=== PATIENT | female | born 1990 | race Caucasian/White ===

== ENCOUNTER 2019-05-08 18:00 | Inpatient (IN) | payer BC, SELFPAY ==
[2016-09-29 01:10] VITALS: BMI 29.7
[2019-05-08] MEDS: Lactated Ringers 1,000 ML 50 ML IV (18:35)
[2019-05-08 18:45] VITALS: BMI 32.1
[2019-05-08 19:06] LABS: Absolute Lymphocyte Count 1.52 X10^3/uL (0.83-4.51); Absolute Neutrophil Count 5.6 X10^3/uL (2.0-7.7); Basophil# 0.02 X10^3/uL; Basophil% 0.3 % (0-1); Eosinophil# 0.13 X10^3/uL; Eosinophils% 1.7 % (0-5); Hematocrit 36.5 % (37-47); Hemoglobin 12.7 g/dL (12.0-15.0); Lymphocyte # 1.52 X10^3/ul (4.0); Lymphocyte % 19.3 % (19-41); Mean Corp Hgb Conc 34.8 g/dL (32-36); Mean Corpuscular Hgb 32.3 pg (27.0-32.0); Mean Corpuscular Volume 92.9 fL (81-99); Monocyte# 0.56 X10^3/uL; Monocyte% 7.1 % (0-10); NRBC Flagged by Analyzer 0 % (0-5); Neutrophil % 71.2 % (47-70); POSITIVE MORPHOLOGY YES; Platelet Count 187 K/mm3 (150-450); RBC Distribution Width CV 13.5 % (11.6-14.6); RBC Distribution Width SD 45.7 fl (35.1-43.9); Red Blood Count 3.93 M/mm3 (4.2-5.4); White Blood Count 7.9 K/mm3 (4.4-11.0)
[2019-05-08 19:10] LABS: Differential Indicated SCAN CRITERIA MET
[2019-05-08 19:38] LABS: Anisocytosis RARE; Macrocytosis RARE; Platelet Estimate ADEQUATE (ADEQ)
[2019-05-08 19:57] LABS: Hematocrit 35.9 % (37-47); Hemoglobin 12.4 g/dL (12.0-15.0); Mean Corp Hgb Conc 34.5 g/dL (32-36); Mean Corpuscular Hgb 32.8 pg (27.0-32.0); Mean Platelet Vol. 11.6 fl (6.2-12.0); Platelet Count 184 K/mm3 (150-450); RBC Distribution Width CV 13.4 % (11.6-14.6); RBC Distribution Width SD 46.6 fl (35.1-43.9); Red Blood Count 3.78 M/mm3 (4.2-5.4); White Blood Count 8.5 K/mm3 (4.4-11.0)
[2019-05-08] MEDS: Oxytocin 30 units/NS 500 ml 30 UNITS/500 ML IV.SOLN 334 UNITS IV (20:10)
[2019-05-08 20:13] LABS: AST(SGOT) 11 U/L (15-37); Alanine Aminotransfer ALT/SGPT 11 U/L (13-56); Creatinine, Serum 0.63 mg/dL (0.55-1.02); EST Glomerular Filtration Rate 119 mL/min (>60); Est Glom Filt Rate - Afr Amer 144 mL/min (>60); Estimated Creatinine Clearance 104.21 ml/min; Uric Acid 3.9 mg/dL (2.6-6.0)
--- NOTE | 2019-05-08 20:30 | PCM.HP.OB ---
History Date of Admission: 05/08/19 Final JULIETA: 05/08/19 Final JULIETA Source: LMP Gestational age: 40 Weeks and 0 Days History of this : This is a 29 year-old, G 4P1 at 40 weeks gestation history of GDM A1 here for induction of labor. Patient was 4 to 5 cm in the office admitted for Pitocin induction. On admission patient was not feeling contractions elevated blood pressures at time of admission but asymptomatic. Shortly after admission patient went to the bathroom had spontaneous rupture membranes and was found to be 9 cm. Allergies No Known Allergies Allergy (Verified 05/08/19 18:47) Home Medications: Home Medications Pnv No.95/Ferrous Fum/Folic AC [ Vitamins Tablet] 1 tab PO DAILY 05/08/19 Smoking Status: Never smoker Alcohol: None Number of Fetus(es): 1 Heart Tracin mod cary, + accels, variables History Past Pregnancies: Past Pregnancies Delivery Date Name GA/Weeks Outcome Route Weight Infant Gender Labor Length Anesthesia Delivery Location Provider FOB Labs: HIV neg, Rub imm, HEPB neg, GBS neg, A + Expected Infant Delivery Method: Spontaneous Vaginal Review of Systems Eyes: Denies: Blurred vision Cardiovascular: Denies: Chest Pain Gastrointestinal: Denies: Abdominal Pain Physical Exam General: Alert, Oriented x3 Neurological: Cranial nerves II-XII grossly intact 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 And for induction of labor but proceeded with spontaneous labor admit to L&D monitor FHR/TOCO anticpate Monitor VS- consider HTN protocol
--- NOTE | 2019-05-08 20:37 | PCM.OPRPT ---
Vaginal Delivery Maternal Presentation: Medically Indicated Induction - pt arrived and proceeded into spontaneous labor - with preciptious delivery Amniotic Membrane Rupture Type: Spontaneous Amniotic Fluid Description: Clear Final JULIETA: 05/08/19 Final JULIETA Source: US <20 weeks Gestational age: 40 Weeks and 0 Days Date of Procedure: 05/08/19 Pre-Operative Diagnosis: term gestation, GDMA1 Post-Operative Diagnosis: same, live male infant Surgery/ Procedure Performed: Spontaneous Vaginal Delivery Type of Anesthesia: - - Nitrous Description of Procedure: Arrived at the hospital patient was found to be complete and a +1 station. Patient had nitrous oxide for pain relief. Patient had good maternal effort with pushing delivered a live male infant born without complication. There were umbilical cord was wrapped around both arms and the back. was vigorous at . Delayed cord clamping was performed. Presentation: Vertex Placental Delivery Description: Spontaneous Placenta Disposition: [facility] Cord Vessel Description: 3 Vessels Nuchal Cord Compression: With compression Cord Entanglement: - - Cord around both arms and back Estimated Blood Loss: 200 A gender: Male (1 minute): 8 (5 minute): 9 Episiotomy Description: None Laceration: Vaginal Extension/lac - repaired with 3-0 rapide, 1st degree Medications given after delivery: IV Pitocin Complications: None
[2019-05-08] MEDS: Oxytocin 30 units/NS 500 ml 30 UNITS/500 ML IV.SOLN 167 UNITS IV (20:40)
[2019-05-08 20:56] LABS: International Normalized Ratio 0.9; Partial Thromboplast Time 28.4 Seconds (24.1-36.2); Prothrombin Time (Protime)PT. 12.3 SECONDS (11.7-14.9)
[2019-05-08 21:40] LABS: Bedside Glucose 65 mg/dL (70-110)
[2019-05-08 21:40] LABS: Bedside Glucose 111 mg/dL (70-110)
[2019-05-08] MEDS: Methylergonovine 0.2 MG/ML Ampul IM (21:47)
[2019-05-08 22:45] VITALS: BP 153/94; PULSE 68; RESP 18; TEMP 36.6; O2SAT 99
[2019-05-08 23:45] VITALS: BP 180/96; PULSE 77; RESP 18; TEMP 36; O2SAT 96
[2019-05-08 23:55] VITALS: BP 163/88; PULSE 89; RESP 18
[2019-05-09] VITALS (23 sets, daily range): BP systolic 114–179; BP diastolic 65–101; PULSE 61–91; RESP 16–19; TEMP 36.2–36.7; O2SAT 95–100
[2019-05-09] MEDS: 0.9% Saline Lock 10 ML Syringe IV ×2 (00:08→07:27)
[2019-05-09] MEDS: Ibuprofen 600 MG Tablet PO ×4 (00:21→19:13)
--- NOTE | 2019-05-09 00:43 | NURSING ---
Dr Palm was notified at 2232 on pt blood sugar 111. to repeat in AM. also informed of blood pressures. to continue monitoring blood pressures if 160/110 per our protocol wants to be notified. pt currently assymptomatic. Reports that this was the way she was with her last delivery however blood pressure not as high. Doctor aware of methergine x1 given at 2232. reported off at 2330 to keisha rojas.
[2019-05-09] MEDS: Labetalol 100 MG Tablet PO (00:48)
[2019-05-09 01:57] LABS: Creatinine, Urine (random) < 13.00 mg/dL (NO RANGE EST.); Protein, Urine (Random) < 6.0 mg/dL (<11.9)
--- NOTE | 2019-05-09 02:07 | NURSING ---
pt floyd camilo'd @ 0125 for clean catch urine for protein/creat ratio lab
[2019-05-09 07:41] LABS: Bedside Glucose 72 mg/dL (70-110)
--- NOTE | 2019-05-09 08:07 | PN.OBGYN_ITS ---
Subjective: Patient seen at bedside, doing well. Patient reports good pain control, mild lochia. Patient reports no breast-feeding issues. Patient denies headaches, visual changes, right upper quadrant or epigastric pain. - Physical Exam General: Alert, Oriented x3 Abdomen: Soft, Non Tender, Non-Distended, - - Fundus firm. No right upper quadrant pain Extremities: No Calf Tenderness Vital Signs Temp Pulse Resp BP Pulse Ox 97.3 F L 61 16 179/87 H 96 05/09/19 04:19 05/09/19 07:20 05/09/19 07:20 05/09/19 07:20 05/09/19 07:20 Oxygen Delivery Method Room Air Weight: 79.6 kg Body Mass Index (BMI) 32.1 Intake and Output for Last 24 Hours 05/07/19 05/08/19 05/09/19 23:59 23:59 23:59 Intake Total 1825 / 1825 Output Total 700 / 700 1450 / 1450 Balance 1125 / 1125 -1450 / -1450 Laboratory Tests Past 24 Hrs 05/08/19 05/08/19 05/08/19 18:35 18:35 19:45 WBC 7.9 8.5 RBC 3.93 L 3.78 L Hgb 12.7 12.4 Hct 36.5 L 35.9 L MCV 92.9 95.0 MCH 32.3 H 32.8 H MCHC 34.8 34.5 RDW Std Deviation 45.7 H 46.6 H RDW Coeff of Kelly 13.5 13.4 Plt Count 187 184 MPV 12.0 11.6 Immature Gran % (Auto) 0.400 Neut % (Auto) 71.2 H Lymph % (Auto) 19.3 [place] % (Auto) 7.1 Eos % (Auto) 1.7 Baso % (Auto) 0.3 Absolute Neuts (auto) 5.6 Absolute Lymphs (auto) 1.52 Nucleated RBC % 0 Platelet Estimate ADEQUATE Anisocytosis RARE Macrocytosis RARE PT INR APTT Creatinine Estim Creat Clear Calc Est GFR (MDRD) Af Amer Est GFR (MDRD) Non-Af Uric Acid AST ALT U Random Total Protein Urine Creatinine Protein/Creatinin Ratio Blood Type A POSITIVE Antibody Screen NEGATIVE 05/08/19 05/08/19 05/09/19 19:45 19:45 01:25 WBC RBC Hgb Hct MCV MCH MCHC RDW Std Deviation RDW Coeff of Kelly Plt Count MPV Immature Gran % (Auto) Neut % (Auto) Lymph % (Auto) [place] % (Auto) Eos % (Auto) Baso % (Auto) Absolute Neuts (auto) Absolute Lymphs (auto) Nucleated RBC % Platelet Estimate Anisocytosis Macrocytosis PT 12.3 INR 0.9 APTT 28.4 Creatinine 0.63 Estim Creat Clear Calc 104.21 Est GFR (MDRD) Af Amer 144 Est GFR (MDRD) Non-Af 119 Uric Acid 3.9 AST 11 L ALT 11 L U Random Total Protein < 6.0 Urine Creatinine < 13.00 Protein/Creatinin Ratio TNP Blood Type Antibody Screen POC Glucose 05/09/19 05/08/19 05/08/19 07:34 21:21 19:29 POC Glucose 72 111 H 65 L Medical Necessity - Tobacco Use Smoking Status: Never smoker Assessment/Plan Is day #1, gestational hypertension Reviewing her blood pressures there were a few severe blood pressures. However the patient received Methergine after delivery due to increased bleeding. At this point I feel that the patient is stable and overall blood pressures are in the nonsevere range. We will monitor them and if they become persistently severe we will start magnesium. This plan was reviewed with the patient and nursing staff. Increase labetalol to 200 mg twice daily Preeclamptic labs were reviewed and were negative. Monitor her vital signs Patient understands she will need close follow-up in the office. Possible DC home after 48 hours if vital signs are stable.
[2019-05-09] MEDS: Labetalol 200 MG Tablet PO ×2 (10:15→21:53)
--- NOTE | 2019-05-09 16:15 | CASEMGMT ---
Social Work Referral Date: 05/09/19 Date of Assessment: 05/09/19 Reason for Consult: Mother of baby (MOB) with history of depression/anxiety. Informant: Nursing staff, chart. Personal Status Mentation: MOB A&Ox3 Present during assessment: MOB, Father of baby (FOB) and infant. Hx : 4 Hx Para: 1 Infant Gender: Male Infant Name: Merlin Sanchez (1min): 8 (5min): 9 Care: Adequate Alleged father: Queenie Sanchez Alleged father involved: Yes Length of Relationship with alleged father of baby: MOB and FOB have been for 5 years. FOB Employment: FOB has full-time employment. Number of Children in the home: This is second child for MOB and FOB. This is now younger brother to Prasanth Sanchez who is 2 years old. Custody Comments: MOB and FOB have custody of this infant as well as Everlee. Living Arrangements: MOB, FOB, Everlee and now this infant live in own apartment. 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 Supports: MOB reporting to have support from both MOB's family as well as FOB's family. Transportation: MOB denies any transportation concerns. Substance Abuse Hx and Current Pattern of Use MOB denies any substance abuse. Mental Health Hx and Current Status MOB denies any history of depression but is reporting to have a history of anxiety. MOB is stating to have a history of some depression with first . MOB denies any history of medication to treat anxiety/PPD. MOB stating to be able to manage own mental health by talking it out with family members and friends. MOB denies any history of suicidal thoughts. MOB reporting no history of counseling. Items/Skills List for Infants Care Supplies: MOB stating to have all needed supplies (crib, clothing, bassinet, car seat, diapers, wipes etc.). Bonding With Infant: MOB reporting to have a connection with . Observed Maternal/Paternal Child interaction: Infant resting in bassinet during assessment, but MOB did gaze towards often during assessment. Emotional Assessment: MOB presenting with a pleasant affect. MOB stating to be tired due to not sleeping since 6am on 05/08/19. MOB responding appropriately to questions and open to this social workers assessment. Control: MOB stating to not be sure. Resources JFS: N/A WIC: N/A People to People: N/A Community Action: N/A Help Me Grow: MOB not interested at this time, information provided. Children Protective Services Hx: N/A Intervention: Social Work assessment. Resources for depression, safe sleeping, shaken baby syndrome, Help Me Grow, and [facility] resources provided to patient. Assessment: This social professionals met with MOB and FOB in room. MOB resting in bed and infant lying in bassinet, resting. This social professionals introduced self as well as social work role. MOB agreeable to assessment. MOB reporting to be able to manage anxiety with self coping. MOB stating to be able to vent to family and is denying any need to have counseling or plan to begin any medication to assist with anxiety management. MOB stating to be doing well with mental health management. This social professionals educating MOB on the importance of maintaining mental health to be able to meet own needs as well as needs, MOB voicing understanding and plans to speak with PCP if MOB has any mental health concerns. This social professionals providing MOB with resource of signs and symptoms of PPD. MOB aware of risk of PPD and expressing a good understanding of signs and symptoms of PPD. All questions answered. Nursing staff updated on social work assessment, no further referrals at this time. Plan: Infant plans to discharge to home with LIBBY, SHERRY and Prasanth Solis PLANTING MACHINE CREWMAN, PARTS EXPEDITER
[2019-05-10 02:05] VITALS: BP 128/80; PULSE 68; RESP 16; TEMP 36.3
[2019-05-10 08:41] VITALS: BP 140/74; PULSE 84; RESP 16; TEMP 36.8; O2SAT 96
--- NOTE | 2019-05-10 08:43 | DCINST_ITS ---
Discharge Diet: No Restrictions Discharge Activity: May Drive, May Shower May resume sexual activity in: 6 weeks Weight Bearing Status: Weight bearing as tolerated Additional Instructions: If you experience any of the following, contact your healthcare provider. * Bleeding that soaks a pad every hour for 2 hours * Fever 100.4 or higher * Unrelieved incision or abdominal pain * Swelling, redness, discharge or bleeding from your incision or episiotomy site * Your incision begins to separate * Problems urinating (including inability to urinate or burning while urinating). * Visual changes * Severe headache * Flu-like symptoms * Pain or redness in one of both of your breasts * Pain, warmth, tenderness or swelling in your legs, especially the calf area * Frequent nausea and vomiting * Symptoms of depression or anxiety If you experience any of the following, call 911 or go to the nearest Emergency Room. * Chest pain * Problems breathing * Seizure activity * Partial or complete paralysis of a body part, slurred speech, weakness or drooping of the face, or a sudden inability to walk or hold your balance Allergies/Adverse Reactions: Allergies No Known Allergies Allergy (Verified 05/08/19 18:47) Medications to take at Discharge Pnv No.95/Ferrous Fum/Folic AC [ Vitamins Tablet] 1 tab PO DAILY 05/08/19 Labetalol [Trandate (Beta Evette)] 200 mg PO BID #60 tab 05/10/19 The following prescriptions were given: Labetalol [Trandate (Beta Evette)] 200 mg PO BID #60 tab Prescription Printed Primary Care Physician: Iliana Powell DO [Primary Care Provider] - Test Results: Test results from this visit will be discussed in further detail at your follow- up appointment, if applicable.
--- NOTE | 2019-05-10 08:43 | PCM.DCVAG ---
Discharge Diet: No Restrictions Discharge Activity: May Drive, May Shower May resume sexual activity in: 6 weeks Weight Bearing Status: Weight bearing as tolerated Additional Instructions: If you experience any of the following, contact your healthcare provider. Bleeding that soaks a pad every hour for 2 hours Fever 100.4 or higher Unrelieved incision or abdominal pain Swelling, redness, discharge or bleeding from your incision or episiotomy site Your incision begins to separate Problems urinating (including inability to urinate or burning while urinating). Visual changes Severe headache Flu-like symptoms Pain or redness in one of both of your breasts Pain, warmth, tenderness or swelling in your legs, especially the calf area Frequent nausea and vomiting Symptoms of depression or anxiety If you experience any of the following, call 911 or go to the nearest Emergency Room. Chest pain Problems breathing Seizure activity Partial or complete paralysis of a body part, slurred speech, weakness or drooping of the face, or a sudden inability to walk or hold your balance Allergies/Adverse Reactions: Allergies No Known Allergies Allergy (Verified 05/08/19 18:47) Medications to take at Discharge Pnv No.95/Ferrous Fum/Folic AC [ Vitamins Tablet] 1 tab PO DAILY 05/08/19 Labetalol [Trandate (Beta Evette)] 200 mg PO BID #60 tab 05/10/19 The following prescriptions were given: Labetalol [Trandate (Beta Evette)] 200 mg PO BID #60 tab Prescription Printed Primary Care Physician: Iliana Powell DO [Primary Care Provider] - Test Results: Test results from this visit will be discussed in further detail at your follow-up appointment, if applicable.
--- NOTE | 2019-05-10 08:45 | PCM.PN.OB ---
Subjective: Denies headache or blurry vision. She feels well. - Physical Exam General: Alert, Oriented x3 Abdomen: Soft, Non Tender, Non-Distended - ff mid & below umb Extremities: No Calf Tenderness Vital Signs Temp Pulse Resp BP Pulse Ox 98.2 F 84 16 140/74 H 96 05/10/19 08:41 05/10/19 08:41 05/10/19 08:41 05/10/19 08:41 05/10/19 08:41 Oxygen Delivery Method Room Air Weight: 175 lb 7.807 oz Body Mass Index (BMI) 32.1 Intake and Output for Last 24 Hours 05/08/19 05/09/19 05/10/19 23:59 23:59 23:59 Intake Total 1825 / 1825 Output Total 700 / 700 1450 / 1450 Balance 1125 / 1125 -1450 / -1450 Medical Necessity - Tobacco Use Smoking Status: Never smoker Assessment/Plan PPD#2 Gestational hypertension - continue labetalol, Bp's normal. D/c home later today
[2019-05-10] MEDS: Labetalol 200 MG Tablet PO (10:13)
[2019-05-10] MEDS: Senna/Docusate Sodium 1 Tablet PO (10:26)
--- NOTE | 2019-05-10 13:33 | NURSING ---
1200 Patient states she is comfortable going home and taking care of herself and her baby. Discharged to car via wheelchair with baby in lap in carseat. Tolerated well.
== END 2019-05-10 13:20 | disposition home or self-care (01) | DRG 806 ==
PROVIDERS: Admitting Provider Obstetrics & Gynecology; Family Provider Internal Medicine; PCP Internal Medicine; Visit Provider Obstetrics & Gynecology
DX: O24.420 Gestational diabetes mellitus in childbirth, diet controlled (principal); O71.4 Obstetric high vaginal laceration alone; Z37.0 Single live birth; O13.4 Gestational [pregnancy-induced] hypertension without significant proteinuria, complicating childbirth; O48.0 Post-term pregnancy; Z3A.40 40 weeks gestation of pregnancy; O69.1XX0 Labor and delivery complicated by cord around neck, with compression, not applicable or unspecified
CPT/HCPCS: 59025; 59050; 82565; 82570; 82962; 84156; 84450; 84460; 84550; 85025; 85027; 85610; 85730; 86850; 86900; 99218; J7120; A4216; G0378

== ENCOUNTER 2019-05-13 10:40 | Outpatient (CLI) | payer BC, SELFPAY ==
[2019-05-13 11:37] LABS: Hematocrit 35.1 % (37-47); Hemoglobin 11.9 g/dL (12.0-15.0); Mean Corp Hgb Conc 33.9 g/dL (32-36); Mean Corpuscular Hgb 32.3 pg (27.0-32.0); Mean Corpuscular Volume 95.4 fL (81-99); Mean Platelet Vol. 10.4 fl (6.2-12.0); Platelet Count 219 K/mm3 (150-450); RBC Distribution Width CV 13.9 % (11.6-14.6); RBC Distribution Width SD 48.8 fl (35.1-43.9); Red Blood Count 3.68 M/mm3 (4.2-5.4); White Blood Count 7.1 K/mm3 (4.4-11.0)
[2019-05-13 11:44] LABS: International Normalized Ratio 0.9; Prothrombin Time (Protime)PT. 12.2 SECONDS (11.7-14.9)
[2019-05-13 11:45] LABS: Partial Thromboplast Time 27.7 Seconds (24.1-36.2)
[2019-05-13 11:49] LABS: AST(SGOT) 29 U/L (15-37); Alanine Aminotransfer ALT/SGPT 32 U/L (13-56); Creatinine, Serum 0.62 mg/dL (0.55-1.02); EST Glomerular Filtration Rate 120 mL/min (>60); Est Glom Filt Rate - Afr Amer 145 mL/min (>60); Uric Acid 4.1 mg/dL (2.6-6.0)
[2019-05-13 12:27] VITALS: BMI 29.9
[2019-05-13 12:43] LABS: Protein, Urine (Random) 87.3 mg/dL (<11.9); Protein:Creat Ratio 4157 mg/g CRE (0-200)
--- NOTE | 2019-05-27 17:41 | OB.TRI.NOTE ---
History of Present Illness Date of Service: 05/13/19 Was patient seen by the physician?: No Reason For Visit: R/O PIH Final JULIETA Source: US <20 weeks Allergies No Known Allergies Allergy (Verified 05/08/19 18:47) Laboratory Studies: Laboratory Tests 05/13/19 05/13/19 05/13/19 Range/Units 12:10 11:25 11:25 WBC (4.4-11.0) K/mm3 RBC (4.2-5.4) M/mm3 Hgb (12.0-15.0) g/dL Hct (37-47) % MCV (81-99) fL MCH (27.0-32.0) pg MCHC (32-36) g/dL RDW Std Deviation (35.1-43.9) fl RDW Coeff of Kelly (11.6-14.6) % Plt Count (150-450) K/mm3 MPV (6.2-12.0) fl PT 12.2 (11.7-14.9) SECONDS INR 0.9 APTT 27.7 (24.1-36.2) Seconds Creatinine 0.62 (0.55-1.02) mg/dL Est GFR (MDRD) Af Amer 145 (>60) mL/min Est GFR (MDRD) Non-Af 120 (>60) mL/min Uric Acid 4.1 (2.6-6.0) mg/dL AST 29 (15-37) U/L ALT 32 (13-56) U/L U Random Total Protein 87.3 H (<11.9) mg/dL Urine Creatinine 21.00 (NO RANGE EST.) mg/dL Protein/Creatinin Ratio 4157 H (0-200) mg/g CRE 05/13/19 Range/Units 11:25 WBC 7.1 (4.4-11.0) K/mm3 RBC 3.68 L (4.2-5.4) M/mm3 Hgb 11.9 L (12.0-15.0) g/dL Hct 35.1 L (37-47) % MCV 95.4 (81-99) fL MCH 32.3 H (27.0-32.0) pg MCHC 33.9 (32-36) g/dL RDW Std Deviation 48.8 H (35.1-43.9) fl RDW Coeff of Kelly 13.9 (11.6-14.6) % Plt Count 219 (150-450) K/mm3 MPV 10.4 (6.2-12.0) fl PT (11.7-14.9) SECONDS INR APTT (24.1-36.2) Seconds Creatinine (0.55-1.02) mg/dL Est GFR (MDRD) Af Amer (>60) mL/min Est GFR (MDRD) Non-Af (>60) mL/min Uric Acid (2.6-6.0) mg/dL AST (15-37) U/L ALT (13-56) U/L U Random Total Protein (<11.9) mg/dL Urine Creatinine (NO RANGE EST.) mg/dL Protein/Creatinin Ratio (0-200) mg/g CRE NST - FHR Rate Baby A Baseline: 110 Variability:: Moderate Accelerations:: 15 x 15 Decelerations:: None NST Reactive:: Yes Uterine Activity:: Q2 minutes Impression/Plan NST for elevated blood pressure in
== END 2019-05-13 12:45 | disposition home or self-care (01) ==
LOC: WPOUT 10:45 → WP 10:46
PROVIDERS: Family Provider Internal Medicine; PCP Internal Medicine; Referring Provider Obstetrics & Gynecology; Visit Provider Obstetrics & Gynecology
DX: O16.9 Unspecified maternal hypertension, unspecified trimester (principal); Z3A.00 Weeks of gestation of pregnancy not specified
CPT/HCPCS: 82565; 82570; 84156; 84450; 84460; 84550; 85027; 85610; 85730; 99218; G0378

== ENCOUNTER 2020-12-24 13:45 | Inpatient (IN) | payer BC, SELFPAY ==
[2020-12-24] VITALS (44 sets, daily range): BP systolic 104–167; BP diastolic 62–105; PULSE 68–104; TEMP 36.8–37.8; O2SAT 98–100; BMI 30.7
[2020-12-24] MEDS: Lactated Ringers 1,000 ML 50 ML IV (14:35)
[2020-12-24] MEDS: Oxytocin 30 units/NS 500 ml 30 UNITS/500 ML IV.SOLN IV (14:40)
[2020-12-24 14:47] LABS: Absolute Lymphocyte Count 1.66 X10^3/uL (0.83-4.51); Absolute Neutrophil Count 6.8 X10^3/uL (2.0-7.7); Basophil# 0.03 X10^3/uL; Basophil% 0.3 % (0-1); Hematocrit 36.6 % (37-47); Hemoglobin 12.4 g/dL (12.0-15.0); Lymphocyte # 1.66 X10^3/ul (4.0); Lymphocyte % 18.3 % (19-41); Mean Corp Hgb Conc 33.9 g/dL (32-36); Mean Corpuscular Hgb 31.8 pg (27.0-32.0); Mean Corpuscular Volume 93.8 fL (81-99); Mean Platelet Vol. 11.4 fl (6.2-12.0); Monocyte# 0.49 X10^3/uL; Monocyte% 5.4 % (0-10); NRBC Flagged by Analyzer 0 % (0-5); Neutrophil # 6.82 X10^3/uL (2.7-7.7); Neutrophil % 75.4 % (47-70); Platelet Count 206 K/mm3 (150-450); RBC Distribution Width SD 44.8 fl (35.1-43.9); White Blood Count 9.1 K/mm3 (4.4-11.0)
[2020-12-24 15:25] LABS: Bedside Glucose 74 mg/dL (70-110)
--- NOTE | 2020-12-24 16:44 | PCM.HP.OB ---
- Problem List (1) 39 weeks gestation of Status: Acute (2) Chronic hypertension affecting Status: Acute (3) Gestational diabetes Status: Acute Qualifiers: Gestational diabetes mellitus control: diet-controlled Trimester: third trimester Qualified Code(s): O24.410 - Gestational diabetes mellitus in , diet controlled History Date of Admission: 12/24/20 Final JULIETA: 12/31/20 Final JULIETA Source: US <20 weeks Gestational age: 39 Weeks and 0 Days History of this : This is a 30 year-old, G [5], P [2021], at 39 weeks gestational age that was sent over from the office for induction of labor due to chronic hypertension, GDM diet controlled and history of precipitous delivery. Patient denies feeling any contractions, denies loss of fluid or vaginal bleeding and positive movement. Allergies No Known Allergies Allergy (Verified 05/08/19 18:47) Home Medications: Home Medications Pnv No.95/Ferrous Fum/Folic AC [ Vitamins Tablet] 1 tab PO DAILY 05/08/19 Labetalol [Trandate (Beta Evtete)] 200 mg PO BID 12/24/20 Smoking Status: Never smoker Number of Fetus(es): 1 NST - FHR Rate Baby A Baseline: 135 Variability:: Moderate Accelerations:: 15 x 15 Decelerations:: None NST Reactive:: Yes FHR Category:: Category I Uterine Activity:: TOCO reading every 2-4 minutes. Palpate moderate and relaxed in between History Past Pregnancies: Past Pregnancies Delivery Date Name GA/ Weeks Outcome Route Wt Sex Labor Length Anesthesia Delivery Location Provider FOB Labs: A+ Rubella immune HB- neg HC- neg RPR- NR HIV- NR GC/CH- neg GBS negative COVID- 19 - unsure Bedside glucose- 74 Expected Infant Delivery Method: Spontaneous Vaginal Review of Systems Constitutional: Denies: Chills, Fever, Weight Change HEENT: Denies: Head Aches, Sinus Congestion, Sinus Drainage Cardiovascular: Denies: Chest Pain, Palpitations Respiratory: Denies: Cough, Shortness of breath at rest, Sputum production Gastrointestinal: Denies: Abdominal Pain, Nausea, Vomiting Genitourinary: Denies: Dysuria Musculoskeletal: Denies: Joint Pain, Joint Tenderness Neurological: Denies: Numbness, Tingling, Focal weakness Physical Exam Vitals: Vital Signs Temp Pulse BP Pulse Ox 98.7 F 85 123/80 H 99 12/24/20 16:15 12/24/20 16:15 12/24/20 16:15 12/24/20 16:15 General: Alert, Oriented x3 HEENT: Atraumatic Cardiovascular: Regular rate Lungs: Normal air movement Abdomen: Soft, Non Tender, Gravid Extremities:: No edema Neurological: Cranial nerves II-XII grossly intact 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 A/P Admit to labor and delivery Routine labs IV fluids per policy Cat. 1 tracing NST reactive GBS negative Pitocin IV- titrate per policy Anticipate AROM soon, patient desires to delay AROM due to attempting a nonmedicated labor and delivery Dr. Jesus updated and is collaborating physician
[2020-12-24] MEDS: Lactated Ringers 500 ML 999 ML IV ×3 (17:37→19:52)
--- NOTE | 2020-12-24 18:00 | PN.OBGYN_ITS ---
Patient Problems: Active and Suspected Problems 39 weeks gestation of (Acute) Chronic hypertension affecting (Acute) Gestational diabetes (Acute) Subjective: Patient seen at bedside. Reports increasing pain/pressure with contractions. Continues to desire unmedicated labor and delivery Objective: CE- /-1 A.R.O.M for clear fluid - Physical Exam Vitals/I&O's: Vital Signs Temp Pulse BP Pulse Ox 100.0 F H 96 157/86 H 100 12/24/20 20:21 12/24/20 20:39 12/24/20 20:39 12/24/20 20:21 Weight: 168 lb 3.403 oz Body Mass Index (BMI) 30.7 Intake and Output for Last 24 Hours 12/22/20 12/23/20 12/24/20 23:59 23:59 23:59 Intake Total 1392.84 / 1392.84 Balance 1392.84 / 1392.84 General: Alert, Oriented x3, Cooperative, No apparent distress HEENT: Atraumatic Oral: Moist Mucosa Neck: Supple Lungs: Normal air movement Cardiovascular: Regular rate Abdomen: Soft, Non Tender, Gravid Extremities: Capillary Refill Less than 3 Seconds, No Calf Tenderness Skin: No rashes Neurological: Cranial nerves II-XII grossly intact Psych/Mental Status: Normal Affect Laboratory Results 12/24/20 14:35: WBC 9.1, RBC 3.90 L, Hgb 12.4, Hct 36.6 L, MCV 93.8, MCH 31.8, MCHC 33.9, RDW Std Deviation 44.8 H, RDW Coeff of Kelly 13.0, Plt Count 206, MPV 11.4, Immature Gran % (Auto) 0.600, Neut % (Auto) 75.4 H, Lymph % (Auto) 18.3 L, [place] % (Auto) 5.4, Eos % (Auto) 0.0, Baso % (Auto) 0.3, Absolute Neuts (auto) 6.8, Absolute Lymphs (auto) 1.66, Nucleated RBC % 0 12/24/20 14:35: Blood Type A POSITIVE, Antibody Screen NEGATIVE 12/24/20 15:17: POC Glucose 74 12/24/20 19:24: POC Glucose 95 Current Medications Acetaminophen (Acetaminophen 500 Mg Tablet) 500 - 1,000 mg PO Q6H PRN PRN PRN Reason: Pain Score 1-3 Al Hydroxide/Mg Hydroxide (Mag Hydrox/Al Hydrox/Simeth 30 Ml Udc) 15 - 30 ml PO Q4H PRN PRN PRN Reason: INDIGESTION Citric Acid/Sodium Citrate (Sodium Citrate/Citric Acid 30 Ml Udc) 30 ml PO X1 PRN PRN Reason: Section Dextrose (Dextrose 50%-Water 25 Gm/50 Ml Disp.Syrin) 0 gm IV X1 PRN; Protocol PRN Reason: Hypoglycemia Fentanyl Citrate (Fentanyl 100 Mcg/2 Ml Ampul) 25 - 50 mcg IV Q2H PRN PRN PRN Reason: Pain Score 4-10 Glucagon (Glucagon 1 Mg/Ml Syringe) 1 mg IM .X1 PRN PRN Reason: Hypoglycemia Oxytocin/Sodium Chloride () 30 units in 500 mls @ 2 mls/hr IV .Q250H [facility] Last Infusion: 12/24/20 19:28 Dose: 0 mls/hr Documented by: Lactated Ringer's () 500 mls @ 999 mls/hr IV .Q31M PRN PRN Reason: Epidural Lactated Ringer's () 500 mls @ 999 mls/hr IV .Q31M PRN PRN Reason: Corrective Measures Last Admin: 12/24/20 19:52 Dose: 999 mls/hr Documented by: Lactated Ringer's () 1,000 mls @ 50 mls/hr IV .Q20H [facility] Last Infusion: 12/24/20 19:52 Dose: 0 mls/hr Documented by: Ondansetron HCl (Ondansetron 4 Mg/2 Ml Vial) 4 mg IV Q4H PRN PRN PRN Reason: NAUSEA Prochlorperazine Edisylate (Prochlorperazine 10 Mg/2 Ml Vial) 10 mg IV Q6H PRN PRN PRN Reason: NAUSEA Sodium Chloride (0.9% Saline Lock 10 Ml Syringe) 10 - 40 ml IV X1 PRN PRN Reason: SALINE FLUSH Medical Necessity - Tobacco Use Smoking Status: Never smoker Assessment/Plan All Active Problems 39 weeks gestation of (Acute) Chronic hypertension affecting (Acute) Gestational diabetes (Acute) at 39.0 weeks for induction of labor for gestational diabetes and chronic hypertension. A/P Category 1 tracing Continue position changes AROM for clear fluid Pitocin at 4 mu/min Anticipate
[2020-12-24] MEDS: Amnioinfusion- 0.9% NS 1,000 ML IV.SOLN. 300 ML INTRA-UTER (19:24)
[2020-12-24 19:31] LABS: Bedside Glucose 95 mg/dL (70-110)
[2020-12-24] MEDS: Oxytocin 30 units/NS 500 ml 30 UNITS/500 ML IV.SOLN 999 UNITS IV (21:11)
--- NOTE | 2020-12-24 21:19 | OP.PCM_ITS ---
Vaginal Delivery Maternal Presentation: Medically Indicated Induction Method of Induction: Pitocin, Amniotomy Medical Reason for Induction: - - gestational diabetes diet controlled, chronic hypertension Amniotic Membrane Rupture Type: Artificial Amniotic Fluid Description: Clear Final JULIETA: 12/31/20 Final JULIETA Source: US <20 weeks Gestational age: 39 Weeks and 0 Days Date of Procedure: 12/24/20 Pre-Operative Diagnosis: decelerations Post-Operative Diagnosis: same Surgery/ Procedure Performed: Vacuum Assisted Vaginal Delivery - low Anesthesiologist: Abena Zuniga Type of Anesthesia: - - spinal Description of Procedure: The patient was 9-1/2 cm with just some floppy cervix anteriorly and posteriorly. There is minimal caput. Position was CY. When she pushed, she was able to push through the remaining cervix. However, there were recurrent deep variables. They were unresponsive to septated measures. When I arrived and evaluated the patient, the decision was made to transport her to the C- section room for a double set up. I discussed the case with Dr. Zuniga and a decision was made to proceed with a spinal and if the patient was 10 cm and the head was low enough, to attempt a vacuum-assisted vaginal delivery, otherwise we would proceed with . The spinal was placed, and when the patient was laid down and she pushed on the next contraction she was able to move the head to +2 out of the 5 station. Position was CY. The vacuum was then placed on the flexion point and he was created to 550 mmHg. I pulled with 1 contraction with significant descent and there was a pop-off. The vacuum was replaced I pulled with the second contraction and the head was then on the pelvic floor. With the next contraction, I was able to pull and a pop off. The vacuum remained off and the patient was able to deliver the vertex on the next push of the same contraction. A vigorous male was delivered CY over a 7 mm vaginal laceration. A loose nuchal cord ?1 was easily reduced. The remainder the was delivered with maternal pushing and gentle traction only in less than 15 seconds. The Pitocin infusion was initiated for active management of the third stage. The cord was clamped and cut after 1 minute. The infant was attended to by the waiting nursing staff. The placenta was delivered spontaneously and intact. The cervix and vagina were intact. The small vaginal laceration was a first-degree laceration, and was hemostatic and not repaired. Sponge and needle counts were correct. A vaginal sweep was completed by me. Delivery time 2107 Presentation: CY Placental Delivery Description: Spontaneous Placenta Disposition: [facility] Cord Vessel Description: 3 Vessels Nuchal Cord Compression: Without compression Cord Gases drawn per routine: ABG, VBG Cord Entanglement: Around neck x 1, loose Drain: El to straight drain Estimated Blood Loss: 300 Infant A gender: Male - [place] Episiotomy Description: None Laceration: 1st degree - vaginal, hemostatic, not repaired Medications given after delivery: IV Pitocin Complications: None
[2020-12-24 21:50] LABS: Bedside Glucose 95 mg/dL (70-110)
--- NOTE | 2020-12-24 22:18 | NURSING ---
arterial blood gas unable to be obtained, verbally updated
[2020-12-24 22:36] LABS: Bedside Glucose 101 mg/dL (70-110)
[2020-12-24] MEDS: 0.9% Saline Lock 10 ML Syringe IV (23:44)
--- NOTE | 2020-12-25 00:07 | NURSING ---
0005- This RN received report from Chucho Muller, special delivery carrier. Resuming care at this time.
[2020-12-25] MEDS: Acetaminophen 500 MG Tablet 1000 MG PO ×2 (00:49→11:48)
[2020-12-25 02:29] VITALS: BP 135/92; PULSE 79; RESP 16; TEMP 37; O2SAT 97
[2020-12-25] MEDS: Ibuprofen 600 MG Tablet PO ×2 (02:36→15:55)
[2020-12-25 05:45] VITALS: BP 138/88; PULSE 80; RESP 16; TEMP 36.6; O2SAT 97
[2020-12-25 06:21] LABS: Hematocrit 30.7 % (37-47); Hemoglobin 10.6 g/dL (12.0-15.0); Mean Corp Hgb Conc 34.5 g/dL (32-36); Mean Corpuscular Hgb 32.9 pg (27.0-32.0); Mean Corpuscular Volume 95.3 fL (81-99); Platelet Count 178 K/mm3 (150-450); RBC Distribution Width CV 13.1 % (11.6-14.6); RBC Distribution Width SD 45.7 fl (35.1-43.9); Red Blood Count 3.22 M/mm3 (4.2-5.4); White Blood Count 13.2 K/mm3 (4.4-11.0)
[2020-12-25 06:21] LABS: Bedside Glucose 101 mg/dL (70-110)
[2020-12-25 08:05] VITALS: BP 138/92; PULSE 68; RESP 14; TEMP 36.8
--- NOTE | 2020-12-25 09:03 | PN.OBGYN_ITS ---
Patient Problems: Active and Suspected Problems 39 weeks gestation of (Acute) Chronic hypertension affecting (Acute) Gestational diabetes (Acute) Subjective: Doing well per patient and nursing staff. Ambulating and taking PO without difficulty. Voiding and passing flatus. Pain controlled. and pum ping. Baby in special care nursery for blood sugar. Denies any headache, chest pain, shortness of breath, leg pain, increased vaginal bleeding or clots. Planning discharge home tomorrow. - Physical Exam Vitals/I&O's: Vital Signs Temp Pulse Resp BP Pulse Ox 97.9 F 80 16 138/88 H 97 12/25/20 05:45 12/25/20 05:45 12/25/20 05:45 12/25/20 05:45 12/25/20 05:45 Oxygen Delivery Method Room Air Weight: 168 lb 3.403 oz Body Mass Index (BMI) 30.7 Intake and Output for Last 24 Hours 12/23/20 12/24/20 12/25/20 23:59 23:59 23:59 Intake Total 2542.84 / 2542.84 Output Total 800 / 800 2099 Balance 1742.84 / 1742.84 -2099 General: Alert, Oriented x3, Cooperative HEENT: Atraumatic, Normocephalic Neck: Trachea Midline Lungs: Clear to auscultation, Normal air movement, No rhonchi, No wheeze Cardiovascular: Regular rate, Regular Rhythm, No murmurs Abdomen: Soft, Non Tender Extremities: No edema Psych/Mental Status: Normal Affect, Appropriate Microbiology Past 72 Hours 12/24/20 20:27 Mucosa - Nose SARS-CoV-2 Antigen (Rapid) - Final Laboratory Results 12/24/20 14:35: WBC 9.1, RBC 3.90 L, Hgb 12.4, Hct 36.6 L, MCV 93.8, MCH 31.8, MCHC 33.9, RDW Std Deviation 44.8 H, RDW Coeff of Kelly 13.0, Plt Count 206, MPV 11.4, Immature Gran % (Auto) 0.600, Neut % (Auto) 75.4 H, Lymph % (Auto) 18.3 L, [place] % (Auto) 5.4, Eos % (Auto) 0.0, Baso % (Auto) 0.3, Absolute Neuts (auto) 6.8, Absolute Lymphs (auto) 1.66, Nucleated RBC % 0 12/24/20 14:35: Blood Type A POSITIVE, Antibody Screen NEGATIVE 12/24/20 15:17: POC Glucose 74 12/24/20 19:24: POC Glucose 95 12/24/20 20:27: POC Glucose 95 12/24/20 21:55: POC Glucose 101 12/25/20 05:15: WBC 13.2 H, RBC 3.22 L, Hgb 10.6 L, Hct 30.7 L, MCV 95.3, MCH 32.9 H, MCHC 34.5, RDW Std Deviation 45.7 H, RDW Coeff of Kelly 13.1, Plt Count 178, MPV 11.0 12/25/20 06:12: POC Glucose 101 Current Medications Acetaminophen (Acetaminophen 500 Mg Tablet) 1,000 mg PO Q8H PRN PRN PRN Reason: Pain Score 1-3 Last Admin: 12/25/20 00:49 Dose: 1,000 mg Documented by: Bisacodyl (Bisacodyl 10 Mg Suppository) 10 mg RC UD PRN PRN Reason: If no BM Dibucaine (Dibucaine 30 Gm Tube) 1 applic TOPICAL TID PRN PRN; Protocol PRN Reason: Discomfort Hydrocortisone (Hydrocortisone 2.5% Crm) 1 applic TOPICAL TID PRN PRN; Protocol PRN Reason: Discomfort Ibuprofen (Ibuprofen 600 Mg Tablet) 600 mg PO Q6H PRN PRN PRN Reason: Pain Score 1-3 Last Admin: 12/25/20 02:36 Dose: 600 mg Documented by: Methylergonovine Maleate (Methylergonovine 0.2 Mg/Ml Ampul) 0.2 mg IM X1 PRN PRN Reason: Excess bleeding/uterine atony Ondansetron HCl (Ondansetron 4 Mg/2 Ml Vial) 4 mg IV Q4H PRN PRN PRN Reason: Nausea Senna/Docusate Sodium (Senna/Docusate Sodium 1 Tablet) 1 - 2 tablet PO DAILY PRN PRN PRN Reason: Constipation Simethicone (Simethicone 80 Mg Tablet) 80 mg PO PCHS PRN PRN Reason: Indigestion/Stomach pain Sodium Chloride (0.9% Saline Lock 10 Ml Syringe) 5 - 15 ml IV UD PRN PRN Reason: SALINE FLUSH Last Admin: 12/24/20 23:44 Dose: 10 ml Documented by: Medical Necessity - Tobacco Use Smoking Status: Never smoker Assessment/Plan All Active Problems 39 weeks gestation of (Acute) Chronic hypertension affecting (Acute) Gestational diabetes (Acute) A:PPD #1 Vacuum assisted vaginal delivery Chronic HTN P: 1) Routine care 2) Pain management 3) Labetalol 200mg PO BID, BP stable 4) Planning discharge home tomorrow
[2020-12-25 11:40] VITALS: BP 144/92; PULSE 68; RESP 16; TEMP 36.9
[2020-12-25] MEDS: Labetalol 200 MG Tablet PO ×2 (11:47→21:41)
[2020-12-25 15:55] VITALS: BP 124/75; PULSE 84; RESP 16; TEMP 36.2
[2020-12-25 20:28] VITALS: BP 134/86; PULSE 68; RESP 16; TEMP 36.6
[2020-12-26 01:46] VITALS: BP 138/79; PULSE 63; RESP 16; TEMP 36.6
[2020-12-26] MEDS: Acetaminophen 500 MG Tablet 1000 MG PO (08:06)
[2020-12-26] MEDS: Ibuprofen 600 MG Tablet PO ×2 (08:06→14:18)
[2020-12-26 08:24] VITALS: BP 136/76; PULSE 60; RESP 16; TEMP 36.2
[2020-12-26] MEDS: Labetalol 200 MG Tablet PO (10:12)
--- NOTE | 2020-12-26 13:36 | PCM.PN.OB ---
Patient Problems: Active and Suspected Problems 39 weeks gestation of (Acute) Chronic hypertension affecting (Acute) Gestational diabetes (Acute) Subjective: Doing well per patient and nursing staff. Ambulating and taking p.o. without difficulty. Voiding and passing flatus. Complaint of neck and shoulder pain, relieved with massage therapy, denies any positional changes that cause headache or improvement. Pain controlled. remains in special care nursery, patient breast-feeding and pumping. Blood pressure jaleel in mild range labetalol 200 mg p.o. twice daily. Denies any headache, chest pain, shortness of breath, leg pain, vaginal bleeding, or increased clots. Discharge to [facility] status today. - Physical Exam Vitals/I&O's: Vital Signs Temp Pulse Resp BP Pulse Ox 97.1 F L 60 16 136/76 H 97 12/26/20 08:24 12/26/20 08:24 12/26/20 08:24 12/26/20 08:24 12/25/20 05:45 Oxygen Delivery Method Room Air Weight: 168 lb 3.403 oz Body Mass Index (BMI) 30.7 Intake and Output for Last 24 Hours 12/24/20 12/25/20 12/26/20 23:59 23:59 23:59 Intake Total 2542.84 / 2542.84 Output Total 800 / 800 2099 / 2099 Balance 1742.84 / 1742.84 -2099 General: Alert, Oriented x3, Cooperative HEENT: Atraumatic, Normocephalic Neck: Trachea Midline Lungs: Clear to auscultation, Normal air movement, No rhonchi, No wheeze Cardiovascular: Regular rate, Regular Rhythm, No murmurs Abdomen: Bowel Sounds Present, Soft, Non Tender - Fundus firm 2 below U Extremities: No edema Psych/Mental Status: Normal Affect, Appropriate Microbiology Past 72 Hours 12/24/20 20:27 Mucosa - Nose SARS-CoV-2 Antigen (Rapid) - Final Current Medications Acetaminophen (Acetaminophen 500 Mg Tablet) 1,000 mg PO Q8H PRN PRN PRN Reason: Pain Score 1-3 Last Admin: 12/26/20 08:06 Dose: 1,000 mg Documented by: Bisacodyl (Bisacodyl 10 Mg Suppository) 10 mg RC UD PRN PRN Reason: If no BM Dibucaine (Dibucaine 30 Gm Tube) 1 applic TOPICAL TID PRN PRN; Protocol PRN Reason: Discomfort Hydrocortisone (Hydrocortisone 2.5% Crm) 1 applic TOPICAL TID PRN PRN; Protocol PRN Reason: Discomfort Ibuprofen (Ibuprofen 600 Mg Tablet) 600 mg PO Q6H PRN PRN PRN Reason: Pain Score 1-3 Last Admin: 12/26/20 08:06 Dose: 600 mg Documented by: Labetalol HCl (Labetalol 200 Mg Tablet) 200 mg PO BID [facility] Last Admin: 12/26/20 10:12 Dose: 200 mg Documented by: Methylergonovine Maleate (Methylergonovine 0.2 Mg/Ml Ampul) 0.2 mg IM X1 PRN PRN Reason: Excess bleeding/uterine atony Nifedipine (Nifedipine 60 Mg Tablet) 60 mg PO DAILY ALFONSO Ondansetron HCl (Ondansetron 4 Mg/2 Ml Vial) 4 mg IV Q4H PRN PRN PRN Reason: Nausea Multivit/Folic Acid/Iron ( Vits Tablet) 1 tablet PO DAILY@1200 ALFONSO Senna/Docusate Sodium (Senna/Docusate Sodium 1 Tablet) 1 - 2 tablet PO DAILY PRN PRN PRN Reason: Constipation Simethicone (Simethicone 80 Mg Tablet) 80 mg PO PCHS PRN PRN Reason: Indigestion/Stomach pain Sodium Chloride (0.9% Saline Lock 10 Ml Syringe) 5 - 15 ml IV UD PRN PRN Reason: SALINE FLUSH Last Admin: 12/24/20 23:44 Dose: 10 ml Documented by: Medical Necessity - Tobacco Use Smoking Status: Never smoker Assessment/Plan All Active Problems 39 weeks gestation of (Acute) Chronic hypertension affecting (Acute) Gestational diabetes (Acute) A: PPD#2 Vacuum Assisted Vaginal Delivery Acute blood loss anemia Chronic HTN P: 1) Routine care 2) BP stable and mildly elevated.Patient questioned BP medication and stated she took labetalol once a day but further chart review patient was on Procardia 60mg ER once daily. Labetalol discontinued and Procardia ordered. 3) Iron supplement 4) Pain management. Heating pad for neck discomfort. Appears musculoskeletal at this time. 5) D/C to hotel status. Follow up in 2 weeks and 6 weeks .
--- NOTE | 2020-12-26 13:43 | DCINST_ITS ---
Discharge Diet: No Restrictions Discharge Activity: Return to Normal Activity, May not drive while taking narcotic pain medications., May Shower, May Take a Tub Bath May resume sexual activity in: 4-6 weeks Weight Bearing Status: Full weight bearing Additional Activity Instructions:: Nothing in the vagina for 4-6 weeks. You may return to work/school in 6 weeks. Call your doctor if your incision/area has: Continuous Slow Oozing, Sudden Increased Bleeding, Increased Pain/ Swelling, Increased Redness, Foul Smelling Discharge Call your doctor if you observe: Fever of 101 or Higher, Coldness, Increased Pain, Inability to urinate, Inability to have a bowel movement, Using more than one pad per hour, Shortness of breath, Chest pain Additional Instructions: If you experience any of the following, contact your healthcare provider. * Bleeding that soaks a pad every hour for 2 hours * Fever 100.4 or higher * Unrelieved incision or abdominal pain * Swelling, redness, discharge or bleeding from your incision or episiotomy site * Your incision begins to separate * Problems urinating (including inability to urinate or burning while urinating). * Visual changes * Severe headache * Flu-like symptoms * Pain or redness in one of both of your breasts * Pain, warmth, tenderness or swelling in your legs, especially the calf area * Frequent nausea and vomiting * Symptoms of depression or anxiety If you experience any of the following, call 911 or go to the nearest Emergency Room. * Chest pain * Problems breathing * Seizure activity * Partial or complete paralysis of a body part, slurred speech, weakness or drooping of the face, or a sudden inability to walk or hold your balance Allergies/Adverse Reactions: Allergies No Known Allergies Allergy (Verified 05/08/19 18:47) Medications to take at Discharge Pnv No.95/Ferrous Fum/Folic AC [ Vitamins Tablet] 1 tab PO DAILY 05/08/19 NIFEdipine [Procardia Xl] 60 mg PO DAILY tablet 12/26/20 NIFEdipine [Procardia Xl] 60 mg PO DAILY #30 tab 12/26/20 The following prescriptions were given: NIFEdipine [Procardia Xl] 60 mg PO DAILY #30 tab Transmission Status: Pending to [facility] #30 When: Call to make an appointment with your doctor in 1 week for BP check and 6 weeks. If you had elevated Blood Pressure or 4th degree laceration you will need to be seen in 2 weeks. Primary Care Physician: Iliana Powell DO [Primary Care Provider] - Test Results: Test results from this visit will be discussed in further detail at your follow- up appointment, if applicable.
[2020-12-26 14:20] VITALS: BP 132/80; PULSE 97; RESP 16; TEMP 36
[2020-12-26] MEDS: Acetaminophen/Butalbital/Caffe 1 Tablet 2 TABLET PO ×2 (15:21→19:58)
--- NOTE | 2020-12-26 18:34 | PCM.PN.BLA ---
Progress Note Patient seen and evaluated in special care nursery. Patient sitting up and breast feeding baby. Patient having neck pain since delivery which is worse today. Neck pain improves when laying flat. Denies headache. Patient denies N/V. Denies vision changes. Denies numbness or tingling or any other neurological symptoms. Denies light sensitivity. PO intake appropriate. Patient has been walking back and forth from her room to Special care nursery since delivery with no difficulty. Day 2 post vaginal delivery in OR with double set up. uneventful Spinal was performed in OR per Dr Jesus's request to facilitate vacuum assisted delivery in OR. Patient's symptoms are atypical for a postdural puncture headache, but patient had a spinal placed for delivery so PDPH is possible. Patient had a long labor and this could also be the result of musculoskeletal pain. Patient states heating pad and Fioricet significantly helped her neck pain. A blood patch was explained to the patient and the patient states her pain at this time is tolerable and declines a blood patch. She wishes to continue Fioricet since that has provided her with the most relief. Recommend she continue with PO fluids and caffeine. All questions were answered. Abena Zuniga DO Anesthesiologist
[2020-12-26 18:57] VITALS: BP 143/85; PULSE 72
[2020-12-26] MEDS: NIFEdipine 60 MG Tablet PO (18:59)
[2020-12-26 19:50] VITALS: BP 137/77; PULSE 66; RESP 16; TEMP 37.1
[2020-12-27] MEDS: Acetaminophen/Butalbital/Caffe 1 Tablet 2 TABLET PO ×2 (00:10→04:39)
[2020-12-27 01:44] VITALS: BP 119/71; PULSE 74; RESP 16; TEMP 36.4
[2020-12-27] MEDS: Ibuprofen 600 MG Tablet PO ×2 (01:49→10:36)
--- NOTE | 2020-12-27 08:44 | PN.OBGYN_ITS ---
Patient Problems: Active and Suspected Problems 39 weeks gestation of (Acute) Chronic hypertension affecting (Acute) Gestational diabetes (Acute) Subjective: Doing well per patient nursing staff. Ambulating taking p.o. without difficulty. Voiding and passing flatus. Denies any headache, chest pain, shortness of breath, leg pain, or increased vaginal bleeding or clots. Patient inpatient and additional night due to increased neck pain and unsure if spinal headache after spinal analgesia.Patient states heating pad and Fioricet significantly helped her neck pain. Patient feels at this time she did not want a blood patch and it feels more musculoskeletal. Okay to DC home. - Physical Exam Vitals/I&O's: Vital Signs Temp Pulse Resp BP Pulse Ox 97.6 F L 74 16 119/71 97 12/27/20 01:44 12/27/20 01:44 12/27/20 01:44 12/27/20 01:44 12/25/20 05:45 Oxygen Delivery Method Room Air Weight: 168 lb 3.403 oz Body Mass Index (BMI) 30.7 Intake and Output for Last 24 Hours 12/25/20 12/26/20 12/27/20 23:59 23:59 23:59 Output Total 2099 Balance -2099 / General: Alert, Oriented x3, Cooperative HEENT: Atraumatic, Normocephalic Neck: Trachea Midline Lungs: Clear to auscultation, Normal air movement, No rhonchi, No wheeze Cardiovascular: Regular rate, Regular Rhythm, No murmurs Abdomen: Bowel Sounds Present, Soft - Fundus firm to below umbilicus Extremities: No edema - Homans negative bilaterally Psych/Mental Status: Normal Affect, Appropriate Microbiology Past 72 Hours 12/24/20 20:27 Mucosa - Nose SARS-CoV-2 Antigen (Rapid) - Final Current Medications Acetaminophen (Acetaminophen 500 Mg Tablet) 1,000 mg PO Q8H PRN PRN PRN Reason: Pain Score 1-3 Last Admin: 12/26/20 08:06 Dose: 1,000 mg Documented by: Acetaminophen/Butalbital/Caffeine (Acetaminophen/Butalbital/Caffe 1 Tablet) 2 tablet PO Q4H PRN PRN PRN Reason: HEADACHE Last Admin: 12/27/20 04:39 Dose: 2 tablet Documented by: Bisacodyl (Bisacodyl 10 Mg Suppository) 10 mg RC UD PRN PRN Reason: If no BM Dibucaine (Dibucaine 30 Gm Tube) 1 applic TOPICAL TID PRN PRN; Protocol PRN Reason: Discomfort Hydrocortisone (Hydrocortisone 2.5% Crm) 1 applic TOPICAL TID PRN PRN; Protocol PRN Reason: Discomfort Ibuprofen (Ibuprofen 600 Mg Tablet) 600 mg PO Q6H PRN PRN PRN Reason: Pain Score 1-3 Last Admin: 12/27/20 01:49 Dose: 600 mg Documented by: Methylergonovine Maleate (Methylergonovine 0.2 Mg/Ml Ampul) 0.2 mg IM X1 PRN PRN Reason: Excess bleeding/uterine atony Nifedipine (Nifedipine 60 Mg Tablet) 60 mg PO QHS [facility] Last Admin: 12/26/20 18:59 Dose: 60 mg Documented by: Ondansetron HCl (Ondansetron 4 Mg/2 Ml Vial) 4 mg IV Q4H PRN PRN PRN Reason: Nausea Multivit/Folic Acid/Iron ( Vits Tablet) 1 tablet PO DAILY@1200 ALFONSO Senna/Docusate Sodium (Senna/Docusate Sodium 1 Tablet) 1 - 2 tablet PO DAILY PRN PRN PRN Reason: Constipation Simethicone (Simethicone 80 Mg Tablet) 80 mg PO PCHS PRN PRN Reason: Indigestion/Stomach pain Sodium Chloride (0.9% Saline Lock 10 Ml Syringe) 5 - 15 ml IV UD PRN PRN Reason: SALINE FLUSH Last Admin: 12/24/20 23:44 Dose: 10 ml Documented by: Medical Necessity - Tobacco Use Smoking Status: Never smoker Assessment/Plan All Active Problems 39 weeks gestation of (Acute) Chronic hypertension affecting (Acute) Gestational diabetes (Acute) A:PPD#3 in assisted vaginal delivery Musculoskeletal pain P: 1) Discharge home today 2) BP stable, will give procardia this am 3) Recommend laboratory animal care veterinarian and massage, heat/ice
[2020-12-27 08:45] VITALS: BP 147/96; PULSE 84; RESP 16; TEMP 36.6
[2020-12-27 08:50] VITALS: BP 135/83; PULSE 80
[2020-12-27] MEDS: NIFEdipine 60 MG Tablet PO (10:37)
[2020-12-27] MEDS: Prenatal Vits Tablet 1 TABLET PO (10:37)
[2020-12-27] MEDS: Acetaminophen 500 MG Tablet 1000 MG PO (13:23)
[2020-12-27 13:27] VITALS: BP 118/76; PULSE 72; RESP 16; TEMP 36.1
== END 2020-12-27 13:35 | disposition home or self-care (01) | DRG 806 ==
PROVIDERS: Advanced Practice Midwife; Admitting Provider Obstetrics & Gynecology; PCP Internal Medicine; Visit Provider Obstetrics & Gynecology
DX: O10.92 Unspecified pre-existing hypertension complicating childbirth (principal); O71.4 Obstetric high vaginal laceration alone; Z37.0 Single live birth; O24.420 Gestational diabetes mellitus in childbirth, diet controlled; O69.81X0 Labor and delivery complicated by cord around neck, without compression, not applicable or unspecified; Z3A.39 39 weeks gestation of pregnancy; O90.89 Other complications of the puerperium, not elsewhere classified; M54.2 Cervicalgia
CPT/HCPCS: 59050; 82962; 85025; 85027; 86850; 86900; 86901; 87426; 99218; J7030; J7120; A4216; G0378